=== PATIENT | male | born 1945 | race Caucasian/White ===

== ENCOUNTER 2018-03-28 11:28 | Emergency (ER) | payer BC ==
[~2018-03-28] VITALS: Ht 190.5 cm; Wt 84.6 kg
[~2018-03-28 11:28] MED LIST: CMD/25 PO; FOLI1TAB8 PO; LATA0.009 OPB; LOVENOX SQ; WARF-286 PO; rapaflo PO
[2018-03-28 11:31] VITALS: TEMP 36.8; Ht 190.5 cm; Wt 84.6 kg
[2018-03-28] MEDS ORDERED: LIDOCAINE 1% BUFFERED INJ 5 ML VIAL INFIL ONE (11:45)
[2018-03-28] MEDS ORDERED: DIPHTHERIA/TETANUS/PERTUSSIS 0.5 ML SYR/VIAL IM. ONE (11:45)
--- NOTE | 2018-03-28 12:16 | EMERGENCY ROOM VISIT NOTE ---
ED Visit Note First contact with patient: 11:34 CHIEF COMPLAINT: Right hand laceration 1 hour ago HISTORY OF PRESENT ILLNESS: Patient is a [id number] 72-year-old male who presents emergency department for evaluation of a laceration to the webspace of the right hand between the thumb and index finger. He accidentally cut himself on a bolt about an hour ago. He cleansed and bandage the wound, then came to the emergency department. The bleeding stopped shortly after the injury and there is no weakness or numbness of the hand or fingers. REVIEW OF SYSTEMS: Review of systems as per HPI. All other systems reviewed were negative. At least 6 systems reviewed. PMH: Electronic medical records are reviewed and summarized as above/below. See Problem List. The patient is unsure of his last tetanus vaccination. SOCIAL HISTORY: Patient lives at home with his family. PHYSICAL EXAM: Vital Signs: Reviewed Nurse's notes. There is a 2 cm long laceration on the right hand, in the webspace between the thumb and index finger.. The edges are gaping widely apart. There is no foreign material in the wound and it looks clean. There is no active bleeding. No deep structures such as tendons or nerves are seen in the base of the wound. Extension and flexion of the fingers is full and strong. Sensation to pain and light touch is intact. EMERGENCY DEPARTMENT COURSE: Patient's tetanus is updated. Using sterile technique, saline and Betadine cleansing, and 1% lidocaine anesthesia, the laceration was irrigated with saline and then repaired with 9, 5-0 nylon sutures. Patient tolerated the procedure well. I do not suspect fracture or foreign body, nerve, vascular or tendinous or vascular injury. Medication reconciliation: I attest that I have personally reviewed the patient' s current medication list. Blood pressure screening : Patient was found to have normal blood pressure on screening and does not require follow-up. Problem List Medical Problems: (1) MTHFR mutation Status: Chronic (2) Ocular hypertension Status: Chronic (3) Pulmonary embolism Status: Resolved Current/Historical Medications Scheduled Folic Acid (Folvite), 1 MG PO DAILY Latanoprost 0.005% Oph (Xalatan 0.005% Oph), 1 DROP OPB HS Warfarin Sod (Coumadin), 2.5 MG PO 2XWK Warfarin Sodium (Warfarin Sodium), 5 MG PO 5XWK [Lovenox], 135 MG SQ DAILY [rapaflo], 8 MG PO QPM Allergies Coded Allergies: No Known Allergies (Unverified , 04/30/12) Vital Signs Date Time Temp Pulse Resp B/P (MAP) Pulse Ox O2 Delivery O2 Flow Rate FiO2 03/28/18 12:24 62 18 122/75 95 03/28/18 11:31 36.8 90 17 126/84 96 Room Air Medications Administered Medications (Trade) Dose Ordered Sig/Goyo Route Start Time Stop Time Status Last Admin Dose Admin Diphtheria/ Pertussis/Tetanus Vacc (Adacel Inj) 0.5 ml ONCE ONCE IM. 03/28/18 11:45 03/28/18 11:46 DC 03/28/18 11:50 0.5 ML Departure Information Impression Primary Impression: Laceration of hand Referrals No Doctor, Assigned (PCP) Patient Instructions My [facility] Additional Instructions Keep wound clean and dry. Do not allow any crusting or dried blood to accumulate on sutures clean wounds gently with mild soap and water daily. Use an antibiotic ointment for 3-4 days, then let wound dry. Suture removal in 12- 14 days. Return sooner for any signs of infection (increasing redness, swelling , drainage). Ice and elevate for swelling and pain. Ibuprofen 600 mg and Tylenol 1000 mg every 6 hrs for pain. Problem Qualifiers Primary Impression: Laceration of hand Encounter type: initial encounter Foreign body presence: without foreign body Laterality: right Qualified Codes: S61.411A - Laceration without foreign body of right hand, initial encounter
[2018-03-28 12:24] VITALS: BP 122/75; PULSE 62; O2SAT 95
== END 2018-03-28 12:26 | disposition home or self-care (01) ==
LOC: C.EDB 11:29 → C.EDD 12:26
DX: S61.411A Laceration without foreign body of right hand, initial encounter (principal); W26.8XXA Contact with other sharp object(s), not elsewhere classified, initial encounter; E72.12 Methylenetetrahydrofolate reductase deficiency; H40.059 Ocular hypertension, unspecified eye; Z86.711 Personal history of pulmonary embolism; Z79.01 Long term (current) use of anticoagulants; Z79.899 Other long term (current) drug therapy; Z23 Encounter for immunization